=== PATIENT | female | born 1990 | race Caucasian/White ===

== ENCOUNTER 2016-12-07 18:13 | Inpatient (IN) | payer OTHER ==
[2016-12-07] VITALS (8 sets, daily range): BP systolic 108–124; BP diastolic 61–71; PULSE 73–91; RESP 20; TEMP 98.6
[~2016-12-07 18:13] MED LIST: IBUP600 PO; OXYC1SOL5 PO; PRENCAP6 PO
[2016-12-07] MEDS ORDERED: OXYTOCIN 10 UNIT/ML AMP ONE (18:38)
--- NOTE | 2016-12-07 18:39 | HHI.HP ---
HPI Chief Complaint Home delivery at 17:08 Date Seen: Dec 07, 2016 Time Seen: 18:25 Travel History International Travel<30 Days: No Contact w/Intl Traveler<30Days: No Known Affected Area: No History of Present Illness HPI Pt is a 26 yo . Pt with EDC 12-08-2016. care with Dr Agrawal. care uncomplicated. Pt presented to L&D by EMS after home delivery. Precipitous vaginal delivery after a couple hours melita at home. 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 Umbilical cord clamped and cut by EMS, and placenta membranes delivered 20 minutes post delivery. Weight 8 lbs 3 oz Weeks Gestation: 39 Para: 3 : 4 History Obstetric History Obstetric History Previous C Section with first delivery. Subsequent Past Surgical History Narrative Surgical C Section Family History Family History: Negative Social History Alcohol Use: No Tobacco Use: No Substance Abuse: No Allergies-Medications (Allergen,Severity, Reaction): Coded Allergies: No Known Allergies (Unverified , 11/19/15) Home Meds Active Scripts Oxycodone W/ Acetaminophen (Oxycodone/Acetaminophen 5-325 mg/5Ml) 1 Tab Tab, 1 TAB PO Q4H Y for PAIN SCALE 1 TO 4, #30 TAB 0 Refills Prov:Brittany Fisher MD, R3 11/21/14 Ibuprofen (Motrin 600 Mg Tab) 600 Mg Tab, 600 MG PO Q6H Y for CRAMPING, #30 TAB 0 Refills Prov:Brittany Fisher MD, R3 11/21/14 Reported Medications Mv & Min W/Fe Fumarat ( 1) Cap, 1 CAP PO DAILY, CAP 11/19/14 Review of Systems Except as stated in HPI: all other systems reviewed are Neg Physical Exam Narrative GENERAL: Well-nourished, well-developed patient. SKIN: Warm and dry. HEAD: Normocephalic and atraumatic. EYES: No scleral icterus. No injection or drainage. ENT: No nasal drainage noted. Mucous membranes pink. Airway patent. NECK: Supple, trachea midline. No JVD. CARDIOVASCULAR: Regular rate and rhythm without murmurs, gallops, or rubs. RESPIRATORY: Breath sounds equal bilaterally. No accessory muscle use. BREASTS: Bilateral exam showed no masses , no retractions, no nipple discharge. ABDOMEN/GI: Abdomen soft, non-tender, bowel sounds present, no rebound, no guarding uterus firm, 2 FBs below umbilicus GENITOURINARY: External Genitalia: intact and normal in appearance No cervical lacerations or vaginal tears noted. Minimal bleeding. EXTREMITIES: No cyanosis or edema. BACK: Nontender without obvious deformity. No CVA tenderness. NEUROLOGICAL: Awake and alert. Motor and sensory grossly within normal limits. Five out of 5 muscle strength in all muscle groups. Normal speech. Caprini VTE Risk Assessment Caprini VTE Risk Assessment: No/Low Risk (score <= 1) Caprini Risk Assessment Model Point Value = 1 Point Value = 2 Point Value = 3 Point Value = 5 Age 41-60 Minor surgery BMI > 25 kg/m2 Swollen legs Varicose veins or History of unexplained or recurrent spontaneous Oral contraceptives or hormone replacement Sepsis (< 1 month) Serious lung disease, including pneumonia (< 1 month) Abnormal pulmonary function Acute myocardial infarction Congestive heart failure (< 1 month) History of inflammatory bowel disease Medical patient at bed rest Age 61-74 Arthroscopic surgery Major open surgery (> 45 min) Laparoscopic surgery (> 45 min) Malignancy Confined to bed (> 72 hours) Immobilizing plaster cast Central venous access Age >= 75 History of VTE Family history of VTE Factor V Leiden Prothrombin [id number] Lupus anticoagulant Anticardiolipin antibodies Elevated serum homocysteine Heparin-induced thrombocytopenia Other congenital or acquired thrombophilia Stroke (< 1 month) Elective arthroplasty Hip, pelvis, or leg fracture Acute spinal cord injury (< 1 month) Prophylaxis Regimen Total Risk Factor Score Risk Level Prophylaxis Regimen 0-1 Low Early ambulation 2 Moderate Order ONE of the following: *Sequential Compression Device (SCD) *Heparin 5000 units SQ BID 3-4 Higher Order ONE of the following medications: *Heparin 5000 units SQ TID *Enoxaparin/Lovenox 40 mg SQ daily (WT < 150 kg, CrCl > 30 mL/min) *Enoxaparin/Lovenox 30 mg SQ daily (WT < 150 kg, CrCl > 10-29 mL/min) *Enoxaparin/Lovenox 30 mg SQ BID (WT < 150 kg, CrCl > 30 mL/min) AND/OR *Sequential Compression Device (SCD) 5 or more Highest Order ONE of the following medications: *Heparin 5000 units SQ TID (Preferred with Epidurals) *Enoxaparin/Lovenox 40 mg SQ daily (WT < 150 kg, CrCl > 30 mL/min) *Enoxaparin/Lovenox 30 mg SQ daily (WT < 150 kg, CrCl > 10-29 mL/min) *Enoxaparin/Lovenox 30 mg SQ BID (WT < 150 kg, CrCl > 30 mL/min) AND *Sequential Compression Device (SCD) Data Data Group B Strep: Negative Assessment/Plan Assessment and Plan s/p / at home Perineum intact. placenta inspected, complete Admit for care Vance Gtz MD Dec 07, 2016 18:39
[2016-12-07] MEDS ORDERED: ALUMINUM/MAGNESIUM/SIMETH 30 ML CUP PO PRN (18:45)
[2016-12-07] MEDS ORDERED: DOCUSATE SODIUM 50 MG/SENNA 8.6 MG TAB PO PRN (18:45)
[2016-12-07] MEDS ORDERED: ACETAMINOPHEN 325 MG TAB PO PRN (18:45)
[2016-12-07] MEDS ORDERED: SODIUM CHLORIDE 0.9% FLUSH 10 ML FLUSH IV FLUSH PRN (18:45)
[2016-12-07] MEDS ORDERED: WITCH HAZEL 50%/GLYCERIN 12.5% 40 PAD JAR TOPICAL PRN (18:45)
[2016-12-07] MEDS ORDERED: BENZOCAINE 20% TOPICAL SPRAY 60 ML CAN TOPICAL PRN (18:45)
[2016-12-07] MEDS ORDERED: ONDANSETRON ODT 4 MG TAB PO PRN (18:45)
[2016-12-07] MEDS: IBUPROFEN 600 MG TAB PO PRN (19:03)
[2016-12-07] MEDS ORDERED: MEASLES, MUMPS, RUBELLA VACCINE 0.5 ML VIAL SQ ONE (20:00)
[2016-12-07] MEDS ORDERED: DIPHTH/TETANUS/ACEL PERTUSSIS (BOOSTER) 0.5 ML VIAL/PFS IM ONE (20:00)
[2016-12-07] MEDS: SODIUM CHLORIDE 0.9% FLUSH 10 ML FLUSH IV FLUSH SCH (21:00)
[2016-12-07] MEDS ORDERED: ZOLPIDEM TARTRATE 5 MG TAB PO PRN (21:00)
[2016-12-07 21:17] LABS: AUTOMATED NEUTROPHIL # 14.4 TH/MM3 (1.8-7.7); BASOPHIL % 0.1 % (0.0-2.0); EOSINOPHIL % 0.1 % (0.0-4.0); HEMATOCRIT 37.6 % (35.0-46.0); HEMO FLAGS DIFF FINAL; LYMPH % 8.5 % (9.0-44.0); LYMPHOCYTE # 1.4 TH/MM3 (1.0-4.8); MEAN CELL VOLUME 88.5 FL (80.0-100.0); MEAN CORPUSCULAR HEMOGLOBIN 29.4 PG (27.0-34.0); MEAN CORPUSCULAR HGB CONC 33.3 % (32.0-36.0); MONO % 4.3 % (0.0-8.0); PLATELET COUNT 310 TH/MM3 (150-450); RED BLOOD COUNT 4.24 MIL/MM3 (4.00-5.30); RED CELL DISTRIBUTION WIDTH 15.8 % (11.6-17.2); WHITE BLOOD COUNT 16.6 TH/MM3 (4.0-11.0)
[2016-12-07 21:22] LABS: BLOOD, URINE MOD (NEG); COMMENT (UR) CULT NOT INDICATED; CULTURE IF INDICATED CULT NOT INDICATED; GLUCOSE,URINE NEG (NEG); KETONE, URINE NEG (NEG); MUCUS URINE FEW /lpf (OCC); NITRITE,URINE NEG (NEG); URINE COLOR YELLOW (YELLW/STRAW)
[2016-12-08] MEDS: IBUPROFEN 600 MG TAB PO PRN ×3 (00:51→17:58)
--- NOTE | 2016-12-08 08:06 | HHI.OB ---
Subjective Post Day: 1 Remarks s/p home delivery/successful over intact perineum of full term infant female Objective Vitals/I&O Vital Signs Date Time Temp Pulse Resp B/P (MAP) Pulse Ox O2 Delivery O2 Flow Rate FiO2 12/07/16 20:03 18 12/07/16 20:00 91 108/67 (81) 12/07/16 19:45 82 124/71 (88) 12/07/16 19:30 73 120/70 (87) 12/07/16 19:00 20 12/07/16 19:00 82 118/69 (85) 12/07/16 18:45 80 124/61 (82) 12/07/16 18:42 20 12/07/16 18:30 98.6 79 20 113/69 (84) 12/07/16 18:24 79 110/67 (81) Objective Remarks GENERAL: Well-nourished, well-developed patient. CARDIOVASCULAR: Regular rate and rhythm without murmurs, gallops, or rubs. RESPIRATORY: Breath sounds equal bilaterally. No accessory muscle use. ABDOMEN/GI: Abdomen soft, non-tender. Fundus: Firm, non-tender at umbilicus. GENITOURINARY: Light bleeding. EXTREMITIES: No cyanosis or edema, non-tender, without signs of DVT. Medications and IVs Current Medications Medications (Trade) Dose Ordered Sig/Joan Route Start Time Stop Time Status Last Admin (NS Flush) 2 ml BID IV FLUSH 12/07/16 21:00 (NS Flush) 2 ml UNSCH PRN IV FLUSH 12/07/16 18:45 (Tylenol) 650 mg Q4H PRN PO 12/07/16 18:45 (Motrin) 600 mg Q6H PRN PO 12/07/16 18:45 12/08/16 07:07 (Americaine 20% Top Spr) 1 spray Q4H PRN TOPICAL 12/07/16 18:45 (Tucks Pads) 1 applic QID PRN TOPICAL 12/07/16 18:45 (Daisha-Colace) 2 tab Q12H PRN PO 12/07/16 18:45 (Ambien) 5 mg HS PRN PO 12/07/16 21:00 (Mag-Al Plus Susp Liq) 15 ml Q8H PRN PO 12/07/16 18:45 (Zofran Odt) 4 mg Q6H PRN PO 12/07/16 18:45 Assessment/Plan Problem List: (1) , delivered ICD Codes: O34.219 - Maternal care for unspecified type scar from previous delivery Status: Acute Assessment and Plan PPD#1 s/p at home at term routine PP care if cleared can d/c to home today routine office f/u 6 wks Discharge Planning routine Jodi Agrawal MD Dec 08, 2016 08:06
--- NOTE | 2016-12-08 08:07 | HHI.DCPOC ---
Discharge Care Plan Diagnosis: (1) , delivered Your Health Problems Are: Vaginal delivery Report Symptoms to Your Doctor -Temperature above 100.5 degrees -Redness, of incision or excessive or foul smelling drainage -Unusual pain or calf pain -Increased vaginal bleeding -Painful or difficulty urinating -Feelings of extreme sadness or anxiety after 2 weeks Goals to Promote Your Health * To prevent worsening of your condition and complications * To maintain your health at the optimal level Directions to Meet Your Goals Take your medications as prescribed Follow your dietary instruction Follow activity as directed Ensure plenty of rest for recovery Drink fluids for hydration Keep your appointments as scheduled Take your immunizations and boosters as scheduled If your symptoms worsen call your PCP, if no PCP go to Urgent Care Center or Emergency Room Smoking is Dangerous to Your Health. Avoid second hand smoke Call the 24-hour crisis hotline for domestic abuse at Jodi Agrawal MD Dec 08, 2016 08:07
[2016-12-08] MEDS: SODIUM CHLORIDE 0.9% FLUSH 10 ML FLUSH IV FLUSH SCH (09:00)
[2016-12-08 20:45] VITALS: BP 118/73; PULSE 63; RESP 18; TEMP 97.8
[2016-12-09] MEDS: IBUPROFEN 600 MG TAB PO PRN ×2 (00:11→06:07)
--- NOTE | 2016-12-09 07:44 | HHI.OB ---
Subjective Post Day: 2 Objective Vitals/I&O Vital Signs Date Time Temp Pulse Resp B/P (MAP) Pulse Ox O2 Delivery O2 Flow Rate FiO2 12/08/16 20:45 97.8 63 18 118/73 (88) Objective Remarks GENERAL: Well-nourished, well-developed patient. CARDIOVASCULAR: Regular rate and rhythm without murmurs, gallops, or rubs. RESPIRATORY: Breath sounds equal bilaterally. No accessory muscle use. ABDOMEN/GI: Abdomen soft, non-tender. Fundus: Firm, non-tender at umbilicus. GENITOURINARY: Light bleeding. EXTREMITIES: No cyanosis or edema, non-tender, without signs of DVT. Medications and IVs Current Medications Medications (Trade) Dose Ordered Sig/Joan Route Start Time Stop Time Status Last Admin (NS Flush) 2 ml BID IV FLUSH 12/07/16 21:00 (NS Flush) 2 ml UNSCH PRN IV FLUSH 12/07/16 18:45 (Tylenol) 650 mg Q4H PRN PO 12/07/16 18:45 (Motrin) 600 mg Q6H PRN PO 12/07/16 18:45 12/09/16 06:07 (Americaine 20% Top Spr) 1 spray Q4H PRN TOPICAL 12/07/16 18:45 (Tucks Pads) 1 applic QID PRN TOPICAL 12/07/16 18:45 (Daisha-Colace) 2 tab Q12H PRN PO 12/07/16 18:45 (Ambien) 5 mg HS PRN PO 12/07/16 21:00 (Mag-Al Plus Susp Liq) 15 ml Q8H PRN PO 12/07/16 18:45 (Zofran Odt) 4 mg Q6H PRN PO 12/07/16 18:45 Assessment/Plan Problem List: (1) , delivered ICD Codes: O34.219 - Maternal care for unspecified type scar from previous delivery Status: Acute Assessment and Plan PPD#2 s/p at home at term routine PP care d/c to home today Discharge Planning routine Jodi Agrawal MD Dec 09, 2016 07:44
[2016-12-09 08:40] VITALS: BP 114/72; PULSE 76; RESP 16; TEMP 98.4
== END 2016-12-09 11:15 | disposition home or self-care (01) | DRG 776 ==
LOC: H2EB 18:13 → H1EA 20:59
PROVIDERS: ADMIT Obstetrics & Gynecology; ATTEND Obstetrics & Gynecology
DX: Z39.0 Encounter for care and examination of mother immediately after delivery (principal)
CPT/HCPCS: 81001; 85025; 86900; 86901; J2590